=== PATIENT | male | born 1985 | race Caucasian/White ===

== ENCOUNTER 2016-09-07 22:11 | Emergency (ER) | payer OTHER ==
[2016-09-07 23:27] VITALS: BP 131/76
== END 2016-09-07 23:27 | disposition home or self-care (01) ==
LOC: ED 22:11
DX: G43.909 Migraine, unspecified, not intractable, without status migrainosus (principal); Z79.899 Other long term (current) drug therapy

== ENCOUNTER 2016-10-30 22:30 | Emergency (ER) | payer OTHER ==
[~2016-10-30] VITALS: Ht 172.7 cm; Wt 68.0 kg
[2016-10-31 00:38] VITALS: BP 113/68
== END 2016-10-31 00:38 | disposition home or self-care (01) ==
LOC: ED 22:30
DX: S20.211A Contusion of right front wall of thorax, initial encounter (principal); R03.0 Elevated blood-pressure reading, without diagnosis of hypertension; W21.02XA Struck by soccer ball, initial encounter; Y93.66 Activity, soccer; Y99.8 Other external cause status; Y92.89 Other specified places as the place of occurrence of the external cause